=== PATIENT | female | born 1975 | race Caucasian/White ===

== ENCOUNTER 2019-02-20 16:15 | Emergency (ER) | payer BC, OTHER ==
[~2019-02-20] VITALS: Ht 157.5 cm; Wt 90.0 kg
[~2019-02-20 16:15] MED LIST: ACET325T33 PO
[2019-02-20 16:17] VITALS: Ht 157.5 cm; Wt 90.0 kg
[2019-02-20] MEDS ORDERED: ACETAMINOPHEN 325 MG TAB PO ONE (17:30)
[2019-02-20 19:45] VITALS: BP 120/70; PULSE 76; RESP 17
== END 2019-02-20 19:45 | disposition home or self-care (01) ==
LOC: FTE 16:15
DX: O99.89 Other specified diseases and conditions complicating pregnancy, childbirth and the puerperium (principal); M25.561 Pain in right knee; Z3A.19 19 weeks gestation of pregnancy
CPT/HCPCS: 76805; Z7502; Z7610